=== PATIENT | male | born 1970 | race Caucasian/White ===

== ENCOUNTER 2016-06-03 16:02 | Emergency (ER) | payer OTHER | END 2016-06-03 20:00 | disposition short-term general hospital (02) | LOC: EDBD 16:02 → ER 16:02 | DX: T40.1X1A Poisoning by heroin, accidental (unintentional), initial encounter (principal); G93.1 Anoxic brain damage, not elsewhere classified; Z88.0 Allergy status to penicillin | CPT/HCPCS: 36415; 80307; 96360; 96361 ==